=== PATIENT | female | born 1975 | race Caucasian/White ===

== ENCOUNTER 2021-02-20 02:49 | Outpatient (CLI) | payer MEDICAID, SELFPAY ==
[2021-02-20 13:35] LABS: Abs Immature Grans 0.02 10^3/uL (0.0-0.06); Absolute Basophil Count 0.02 10^3/uL (0.0-0.2); Absolute Eosinophil Count 0.17 10^3/uL (0.0-0.7); Absolute Lymphocyte Count 0.89 10^3/uL (1.2-3.4); Absolute Monocyte Count 0.41 10^3/uL (0.1-0.8); Absolute Neutrophil Count 5.88 10^3/uL (1.2-6.7); Basophils % 0.3; Eosinophils % 2.3; HCT 41.2 % (36.0-46.0); HGB 13.5 g/dL (11.2-15.7); Immature Grans % 0.3; MCH 30.7 pg (27.0-33.0); MCHC 32.8 % (32.0-36.0); MCV 93.6 fL (80-95); MPV 9.4 fL (8.0-11.0); Monocytes % 5.5; Neutrophils % 79.6; Nucleated RBC 0 %; Platelet Count 355 10^3/uL (130-400); RDW 13.6 % (11.7-14.6); RDW-SD 46.6 fL; WBC 7.39 10^3/uL (4.4-10.8)
[2021-02-20 13:45] LABS: ALT 21 U/L (14-59); AST 14 U/L (15-37); Albumin 3.3 g/dL (3.4-5.0); Alkaline Phosphatase 115 U/L (46-116); Anion Gap 8.5 mmol/L (3-11); BUN 7 mg/dL (7-18); Bilirubin, Total 0.3 mg/dL (0.2-1.0); CO2 26.5 mmol/L (21.0-32.0); CREATININE 0.6 mg/dL (0.55-1.02); Calcium 8.7 mg/dL (8.5-10.1); Chloride 105 mmol/L (98-107); Glucose 96 mg/dL (74-106); Potassium 3.6 mmol/L (3.5-5.1); Sodium 140 mmol/L (136-145); Total Protein 7.5 g/dL (6.4-8.2)
== END 2021-02-20 02:50 | disposition home or self-care (01) ==
LOC: LBO 02:49
PROVIDERS: Visit Provider Internal Medicine Hematology & Oncology
DX: C20 Malignant neoplasm of rectum (principal)
CPT/HCPCS: 36415; 80053; 85025

== ENCOUNTER 2021-02-27 02:52 | Outpatient (CLI) | payer MEDICAID, SELFPAY ==
[2021-02-27 14:33] LABS: Abs Immature Grans 0.02 10^3/uL (0.0-0.06); Absolute Basophil Count 0.02 10^3/uL (0.0-0.2); Absolute Eosinophil Count 0.31 10^3/uL (0.0-0.7); Absolute Lymphocyte Count 0.92 10^3/uL (1.2-3.4); Absolute Monocyte Count 0.45 10^3/uL (0.1-0.8); Absolute Neutrophil Count 3.76 10^3/uL (1.2-6.7); Basophils % 0.4; Eosinophils % 5.7; HCT 38.4 % (36.0-46.0); HGB 12.5 g/dL (11.2-15.7); Immature Grans % 0.4; Lymphocytes % 16.8; MCH 30.7 pg (27.0-33.0); MCHC 32.6 % (32.0-36.0); MCV 94.3 fL (80-95); MPV 9.1 fL (8.0-11.0); Monocytes % 8.2; Neutrophils % 68.5; Nucleated RBC 0 %; Platelet Count 276 10^3/uL (130-400); RBC 4.07 10^6/uL (3.93-5.22); RDW 14.3 % (11.7-14.6); RDW-SD 46.6 fL; WBC 5.48 10^3/uL (4.4-10.8)
[2021-02-27 14:44] LABS: ALT 18 U/L (14-59); AST 16 U/L (15-37); Albumin 3.1 g/dL (3.4-5.0); Alkaline Phosphatase 109 U/L (46-116); Anion Gap 9.8 mmol/L (3-11); BUN 7 mg/dL (7-18); Bilirubin, Total 0.1 mg/dL (0.2-1.0); CO2 25.2 mmol/L (21.0-32.0); CREATININE 0.7 mg/dL (0.55-1.02); Calcium 8.6 mg/dL (8.5-10.1); Chloride 106 mmol/L (98-107); Glucose 119 mg/dL (74-106); Potassium 3.6 mmol/L (3.5-5.1); Sodium 141 mmol/L (136-145); Total Protein 7.2 g/dL (6.4-8.2)
== END 2021-02-27 02:53 | disposition home or self-care (01) ==
LOC: LBO 02:54
PROVIDERS: Visit Provider Internal Medicine Hematology & Oncology
DX: C20 Malignant neoplasm of rectum (principal)
CPT/HCPCS: 36415; 80053; 85025

== ENCOUNTER 2021-03-06 03:49 | Outpatient (CLI) | payer MEDICAID, SELFPAY ==
[2021-03-06 15:53] LABS: Abs Immature Grans 0.02 10^3/uL (0.0-0.06); Absolute Basophil Count 0.01 10^3/uL (0.0-0.2); Absolute Eosinophil Count 0.55 10^3/uL (0.0-0.7); Absolute Lymphocyte Count 0.62 10^3/uL (1.2-3.4); Absolute Monocyte Count 0.55 10^3/uL (0.1-0.8); Absolute Neutrophil Count 3.57 10^3/uL (1.2-6.7); Basophils % 0.2; Eosinophils % 10.3; HGB 12.8 g/dL (11.2-15.7); Immature Grans % 0.4; Lymphocytes % 11.7; MCH 31.1 pg (27.0-33.0); MCHC 32.8 % (32.0-36.0); MCV 94.9 fL (80-95); MPV 9.2 fL (8.0-11.0); Monocytes % 10.3; Neutrophils % 67.1; Nucleated RBC 0 %; Platelet Count 227 10^3/uL (130-400); RBC 4.11 10^6/uL (3.93-5.22); RDW 15.2 % (11.7-14.6); RDW-SD 50.7 fL; WBC 5.32 10^3/uL (4.4-10.8)
[2021-03-06 16:51] LABS: ALT 18 U/L (14-59); AST 16 U/L (15-37); Albumin 3.3 g/dL (3.4-5.0); Alkaline Phosphatase 127 U/L (46-116); Anion Gap 10.8 mmol/L (3-11); BUN 4 mg/dL (7-18); Bilirubin, Total 0.3 mg/dL (0.2-1.0); CO2 27.2 mmol/L (21.0-32.0); CREATININE 0.7 mg/dL (0.55-1.02); Calcium 8.5 mg/dL (8.5-10.1); Chloride 105 mmol/L (98-107); Glucose 81 mg/dL (74-106); Potassium 3.2 mmol/L (3.5-5.1); Sodium 143 mmol/L (136-145); Total Protein 6.9 g/dL (6.4-8.2)
== END 2021-03-06 03:50 | disposition home or self-care (01) ==
LOC: LBO 03:49
PROVIDERS: Visit Provider Internal Medicine Hematology & Oncology
DX: C20 Malignant neoplasm of rectum (principal)
CPT/HCPCS: 36415; 80053; 85025

== ENCOUNTER 2021-03-13 14:06 | Outpatient (CLI) | payer MEDICAID, SELFPAY ==
--- OUTSIDE RECORDS SUMMARY | 2021-03-13 14:09 | XMS_ITS | Encounter Summary ---
:1975 Author Care Team Providers Name Role Phone Jacqueline Frank WOLFE Primary Care Provider [phone] Milton Camarillo General Surgeon [phone] Reason for Visit Painless rectal bleeding; Telehealth vis it - Patient at home Assessment and Plan Assessment Note 45-year-old woman with stage T3b re ctal cancer. We do not have the biopsy results on the subpectoral lymph nodes as of yet. It is felt that this is unlikely to represent metastatic rectal cancer bu t we await biopsy results to be sure. If biopsy results end up showing metastatic rectal cancer, it will jacquard loom card changer strategies. The patient will need to undergo neoadju vant chemoradiation therapy prior to surgical resection of her tumor. I had a long and detailed discussion wit h the family outlining the management strategies and NCCN guidelines pertaining to this stage of rectal cancer. We had an extensive talk about screening other family members. Siblings need their first colonoscopy at the age of 34. Parents should have colonoscopies every 5 years. The discussion was brought up about nanci ent's first cousins which are third- degree family members under usual circumstances and would otherwise have no increased risk. It so happens that a certain famil y of the patient's first cousins have pa rents who are both a second-degree family member from this woman. One parent is a maternal second-degree family member and the other parent is a paternal second-d egree family member. In regards to wheth er or not this increases risk, I do not know the answer and have informed the family that I will bring up this question to a genetic specialist and get back to them. Overall plan: I have sent referrals to radiation oncol pierre as well as medical oncology for neoadjuvant therapy. The patient will likely need to have a p ort placed for chemotherapy. Once we have a timeframe established for initiation of therapy, I am available to schedule a Mediport placement for her with only a few days advance notice. I will follow up with them, again by tel ephone, in a few days after the biopsy results from the lymph node are back. 30 minutes were spent together as a grou p on this phone call. This visit did not require the physical presence of the patient for examination. This visit was done to go over the staging results which guide the next steps in treatment management in regards to the patient's rectal cancer. This visit was performed by telephone an d was a group discussion involving myself and four family members/caregivers for this patient. As such, no physical exam was performed, but was also not needed. The risks (there is no risk) and benefit s (this enables involvement of all family members where as in-person in the office would only allow 1) to using this alternative platform for follow-up discussion s has been discussed with the family pre viously and they consent and are happy to proceed with this type of communication. My assessment and plans are based off of test results and imaging studies and do not depend on physical examination. It is possible, though unlikely that fur ther evaluation, including in-person examination, may be needed depending on the response to management or today's recommendation. 1. Painless rectal bleeding Discussion Note: None recorded.Patient educational handouts: No information available. Plan of Care Reminders Provider Appointments Cpe 40 06/24/2021 Jacqueline clarke, FAMILY WORKER 9:00AM Lab None ? ? recorded. Referral None ? ? recorded. Procedures None ? ? recorded. Surgeries None ? ? recorded. Imaging None ? ? recorded. Medications Name Start Date ? ? Colace 100 mg capsule ? Take 1 capsule twice a day by oral route. desoximetasone 0.05 % topical ointment ? APPLY A THIN LAYER TO THE AFFECTED AREA (S) BY TOPICAL ROUTE TWICE DAILY. RUB IN GENTLY AND COMPLETELY famotidine 20 mg tablet ? Take 1 tablet every day by oral route for 5 days. hydroxyzine HCl 25 mg tablet ? Take 1 tablet 4 times a day by oral route. levetiracetam 250 mg tablet ? TAKE 2 TABLET BY MOUTH TWICE DAILY lorazepam 0.5 mg tablet ? TAKE 1 TABLET BY MOUTH EVERY 4 TO 6 HOURS NEEDED medroxyprogesterone 150 mg/mL intramuscular syringe ? INJECT 1ML INTRAMUSCULARLY EVERY 3 MONTHS potassium chloride ER 10 mEq capsule,extended release ? Take 1 capsule twice a day by oral route. Tegretol XR 200 mg tablet,extended release ? Take 3 tablets twice a day by oral route for 90 days. Medications Administered None recorded. Vitals Height 4 ft 11.2 in Results Lab Results None recorded. Allergies Code Code System Name Reaction Severity Onset RxNorm Lamictal ? ? ? 8134 RxNorm Phenobarbital ? ? ? 436202 RxNorm Trileptal ? ? ? Notes: 11/21/20 verbal review Reviewed with Ericka wu 06/20/20 Problems Name Status Onset Date Source ? Painless Rectal Bleeding Active 03/28/2020 ? Onychomycosis Active ? History Nevus of Eyelid Active ? ? Hyperlipidemia Active ? History Intellectual Functioning Disability Active ? ? Epilepsy Active ? ? Pericardial Effusion Active ? History Lichen Simplex Chronicus Active ? History Acanthosis Nigricans Active ? History Agenesis of Corpus Callosum Active ? ? Congenital Toxoplasmosis Active ? History Procedures Date Name Performed by ? 12/19/2020 Colonoscopy Information not avai lable Notes: rectal cancer 12/19/2020 Endoscopy Information not avai lable Notes: duodenitis, gastritis, polyps, hiatal hernia. 12/26/2020 MRI, Pelvis, W/ Contrast [facility] ([facility] [place] [facility]) [address] [place] [address] (Work Place) 12/27/2020 CT, Chest + Abdomen + Pelvis, / [facility] (Internal) Contrast [address] [place], [place] [id number] (Work Place) 01/02/2021 PET-CT, Skull Base to Mid-thigh Scan [facility] (Internal) [address] [place] [address] (Work Place) Notes: None Vaccine List Vaccine Type COVID-19, mRNA, LNP-S, PF, 100 mcg/0.5 m L dose 12/03/2020?100 mcg Hep B, adult 01/13/2001 02/17/2001 08/23/2001 Td (adult) preservative free 06/29/2016?0.5 mL Td (adult), adsorbed 06/13/1998 Tdap 05/20/2006 Social History Tobacco Smoking Status Never Smoker Most Recent Tobacco Use Screening 12/15/2019 Family History Relation Problem Onset Age of Age Notes Paternal Grandfather Diabetes mellitus (No N/A (N o Notes) Information) Paternal Grandmother Arthritis (No N/A (No Not es) Information) Father Hypertensive disorder (No N/A (No No mendel) Information) Maternal Grandfather Diabetes mellitus (No N/A (N o Notes) Information) Maternal Grandfather Hypertensive disorder (No N/A (No Notes) Information) Maternal Grandfather Coronary arteriosclerosis (No N/A (No Notes) Information) Maternal Grandfather Malignant tumor of (No N/A ( No Notes) prostate Information) Maternal Grandfather Malignant melanoma (No N/A ( No Notes) Information) Maternal Grandfather Renal failure syndrome (No N/A (No Notes) Information) Functional Status Unknown. Past Encounters 01/10/2021 Painless Rectal Bleeding Milton Camarillo MD: [place] [address], Ph. 12/26/2020 Milton Camarillo MD: [address] [place] [address], Ph. 12/10/2020 Milton Camarillo MD: [place] [address], Ph. History of Present Illness Note: <p>The patient's caregivers and parents(4 people) are {{home* in the office}}. The provider is {{home in the office*}}.

The patient's caregivers and family have been positively identified and have consented to a group, speaker-telephone discussion about results pertainingto her rectal cancer staging workup.

The time spent in counseling and coordination of care was 30 minutes on the telephone.</p><p>
</p><p>
&l t;/p><p>
</p><p>
</p><p><b r></p><p>Reason for this discussion as the patient has had her staging MRI. She also had one of the subpectoral lymph nodes biopsied percutaneously.
</p><p>
</p><p>Stage T3b rectal cancer.
</p>Review of Systems: ROS as noted in the HPI Review of Systems None recorded. Physical Exam ? Notes: <p>Telephone visit
</p>
--- OUTSIDE RECORDS SUMMARY | 2021-03-13 14:09 | XMS_ITS ---
:1975 Author Care Team Providers Name Role Phone JACQUELINE MICHAELA AIDEN Primary Care Provider [phone] STEPHANIE AYALA General Surgeon [phone] Allergies Code Code System Name Reaction Severity Status Onset RxNorm Lamictal ? ? Active ? 8134 RxNorm Phenobarbital ? ? Active ? 734382 RxNorm Trileptal ? ? Active ? Notes: 11/21/20 verbal review Reviewed with Ericka wu 06/20/20 Medications Name Status Start Date Stop Date ? ? acetaminophen 300 mg-codeine 30 mg tablet Completed 200811/28/2008 1 (one) Tablet: every four to six hours as needed amoxicillin 500 mg tablet Completed 09/27/20152015 1 (one) Tablet: twice a day Bactrim DS 800 mg-160 mg tablet Completed 09/18/2016 09/21/2016 1 (one) Tablet: two times daily Cipro 500 mg tablet Completed 04/08/2005 04/15/2005 1 Tablet: BID Colace 100 mg capsule Active ? Not availa ble Take 1 capsule twice a day by oral route. desoximetasone 0.05 % topical ointment Active ? Not available APPLY A THIN LAYER TO THE AFFECTED AREA (S) BY TOPICAL ROUTE TWICE DAILY. RUB IN GENTLY AND COMPLETELY Diflucan 150 mg tablet Completed 06/03/2005 6 1 (one) Tablet: Daily Enablex 7.5 mg tablet,extended release Completed 7 01/05/2008 1 (one) Tablet ER 24HR: Daily famotidine 20 mg tablet Active ? Not avai lable Take 1 tablet every day by oral route for 5 days. fluticasone propionate 50 mcg/actuation nasal spray,suspension A ctive ? Not available USE 1 SPRAY(S) IN EACH NOSTRIL TWICE DAILY Gold Arizmendi Medicated Completed ? 06/20/2020 use as needed hydroxyzine HCl 25 mg tablet Active ? Not available Take 1 tablet 4 times a day by oral route. ketoconazole 2 % topical cream Completed ? 0 12/15/2019 once daily as needed levetiracetam 250 mg tablet Active ? Not available TAKE 2 TABLET BY MOUTH TWICE DAILY lorazepam 0.5 mg tablet Active ? Not avai lable TAKE 1 TABLET BY MOUTH EVERY 4 TO 6 HOURS NEEDED lorazepam 1 mg tablet Completed 03/26/2020 03/26/2020 Macrobid 100 mg capsule Completed ? 11/22/19 21 Take 1 capsule every 12 hours by oral route for 5 days. medroxyprogesterone 150 mg/mL Completed ? intramuscular suspension medroxyprogesterone 150 mg/mL intramuscular syringe Active ? Not available INJECT 1ML INTRAMUSCULARLY EVERY 3 MONTHS Mentax 1 % topical cream Completed 02/19/2012 012 1 (one) Application(s): twice daily for three weeks nto affecte d area potassium chloride ER 10 mEq capsule,extended release Active ? Not available Take 1 capsule twice a day by oral route. Tegretol 200 mg tablet Completed 05/29/2008 8 3 (three) Tablet: every morning and 4 tabs every evening Tegretol XR 100 mg Completed 10/26/2014 10/26/2014 tablet,extended release Tegretol XR 200 mg tablet,extended release Active ? Not available Take 3 tablets twice a day by oral route for 90 days. triamcinolone acetonide 0.1 % lotion Completed ? 12/15/2019 APPLY A THIN LAYER TO THE AFFECTED AREA(S) BY TOPICAL ROUTE 2 T IMES PER DAY Zithromax Z-Wang 250 mg tablet Completed 12/07/2008 1 (one) Tablet: Daily Problems Name Status Onset Date Source ? Right Sided Abdominal Pain Unknown 12/15/2019 ? Painless Rectal Bleeding Active 03/28/2020 ? Onychomycosis Active ? History Tinea Pedis Unknown ? History Nevus of Eyelid Active ? ? Hyperlipidemia Active ? History Intellectual Functioning Disability Active ? ? Localization-related Symptomatic Unknown ? History Epilepsy Epilepsy Active ? ? Pericardial Effusion Active ? History Lichen Simplex Chronicus Active ? History Acanthosis Nigricans Active ? History Agenesis of Corpus Callosum Active ? ? Congenital Toxoplasmosis Active ? History Abnormal Weight Gain Unknown ? History Abnormal Weight Loss Unknown ? History Abdominal Pain Unknown ? History Procedures Date Name Performed by ? 12/19/2020 Colonoscopy Information not avai lable Notes: rectal cancer 12/19/2020 Endoscopy Information not avai lable Notes: duodenitis, gastritis, polyps, hiatal hernia. 03/28/2020 XR, Abdomen [facility] al Radiology (Internal) [address] [place] [id number] (Work Place) 03/28/2020 US, Abdomen, Limited [facility] (Internal) [address] [place] [id number] (Work Place) 03/28/2020 XR, Abdomen, 1 View [facility] Radiology (Internal) [address] [place] [id number] (Work Place) 12/26/2020 MRI, Pelvis, W/ Contrast [facility] [address] [place] [address] (Work Place) 12/27/2020 CT, Chest + Abdomen + Pelvis, W/ [facility] Radiology (Internal) Contrast [address] [place] [id number] (Work Place) 01/02/2021 PET-CT, Skull Base to Mid-thigh Scan [facility] Radiology (Internal) [address] [place] [id number] (Work Place) Notes: None Results Lab Results Date Name Specimen Result Interpretation Description Value Range Status Address ? 12/31/2020 CBC W/ BLD High Wbc 11.0 10*3/uL 5.0-10.0 Final [place] Auto Diff 10*3/uL [facility] [place] [place] L ab (Internal) : [address] t ? ? BLD ? Rbc 4.82 10*6/uL 4.10-5.30 Final N orth 10*6/uL [facility] L ab (Internal) : [address] t ? ? BLD ? Hgb 14.8 g/dL 12.0-16.0 Final Nort h g/dL [facility] L ab (Internal) : [address] t ? ? BLD ? Hct 44.6 % 37.0-47.0 Final [facility] ([facility] : [address] t ? ? BLD ? Mcv 92.5 fL 80.0-96.0 Final [facility] L [facility] (Internal) : [address] t ? ? BLD ? Mch 30.7 pg 26.0-32.0 Final [facility] pg [facility] L ab (Internal) : [address] t ? ? BLD ? Mchc 33.2 g/dL 31.0-35.0 Final Nort h g/dL [facility] L [facility] (Internal) : [address] t ? ? BLD ? Rdw 13.6 % 11.5-14.5 Final [facility] L ab (Internal) : [address] t ? ? BLD ? Plt 232 10*3/uL 130-450 Final Nort h 10*3/uL [facility] L ab (Internal) : [address] t 12/31/2020 CMP, Serum S High g/r 149 mg/dL 74-106 Final North or Plasma mg/dL [facility] L ab (Internal) : [address] t ? ? S ? Bun 14 mg/dL 7-17 Final [facility] mg/dL [facility] L ab (Internal) : [address] t ? ? S ? Crea 0.90 mg/dL 0.52-1.04 Final Nor th mg/dL [facility] L ab (Internal) : [address] t ? ? S Low Ca 8.1 mg/dL 8.4-10.2 Final [facility] mg/dL [facility] L ab (Internal) : [address] t ? ? S ? Na 140 mmol/L 137-145 Final North mmol/L [facility] L ab (Internal) : [address] t ? ? S ? K 3.9 mmol/L 3.5-5.1 Final [facility] mmol/L [facility] L ab (Internal) : [address] t ? ? S ? Cl 101 mmol/L 98-107 Final [facility] mmol/L [facility] L ab (Internal) : [address] t ? ? S ? Tco2 26.0 mmol/L 22.0-30.0 Final No rth mmol/L [facility] L ab (Internal) : [address] t ? ? S Low Tp 6.0 g/dL 6.3-8.2 Final [place] g/dL [facility] L ab (Internal) : [address] t ? ? S Low Alb 3.2 g/dL 3.5-5.0 Final [place] g/dL [facility] L ab (Internal) : [address] t ? ? S ? Tbil 0.5 mg/dL 0.2-1.3 Final [place] mg/dL [facility] L ab (Internal) : [address] t ? ? S ? Alp 69 U/L 50-136 Final [place] U/L [facility] L ab (Internal) : [address] t ? ? S ? Alt 22 U/L 9-52 U/L Final [place] (Sgpt) [facility] L ab (Internal) : [address] t ? ? S ? Ast 27 U/L 14-36 U/L Final [place] (Sgot) [facility] L ab (Internal) : [address] 12/31/2020 Neutrophil BLD ? Anc-manu 10.02 10*3/uL ? Final [place] Count, [facility] Lab (Anc), (Internal) : Blood [address] 12/31/2020 Differenti BLD High Polys 88 % 40-75 % Final N orth al, Country Manual, Hospital Lab Blood (Internal) : [address] ? ? BLD ? Bands 3 % 0-5 % Final [facility] L ab (Internal) : [address] t ? ? BLD Low Lymphs 0 % 20-50 % Final [facility] L ab (Internal) : [address] ? ? BLD ? Lipscomb 3 % 2-10 % Final [facility] L ab (Internal) : [address] t ? ? BLD ? Eos 3 % 0-6 % Final [facility] L ab (Internal) : [address] ? ? BLD High Baso 3 % 0-1 % Final [facility] L ab (Internal) : [address] t ? ? BLD ? Atyp 0 % ? Final [place] Lymph [facility] ab (Internal) : [address] ? ? BLD ? Plts, adequate adequate Final [place] Est. [facility] ab (Internal) : [address] t ? ? BLD ? RBC normal normal Final [place] Morpholog [facility] Hospital ab (Internal) : [address] 12/31/2020 Nlr-manual BLD ? Nlr - <0.01 0.00-3.20 Final [facility] ab (Internal) : [address] 12/31/2020 ESR BLD High Esr 79 mm/h 0-30 mm/h Final No rth (Erythrocy Countr y [facility] Sedimentat (Inter nal): ion Rate), [address] 12/31/2020 Urinalysis UR ? UA-color dark yellow pale F inal [place] , yellow [facility] Dipstick, Hospita l Lab Reflex (Internal) : Micro [address] t ? ? UR ABNORMAL UA-appea cloudy clear Final [facility] ab (Internal) : [address] t ? ? UR ? UA-spec >=1.030 1.003-1.0 Final Nort h Grav 35 [facility] ab (Internal) : [address] t ? ? UR ? UA-pH 6.5 [pH] 4.6-8.0 Final [place] [pH] [facility] ab (Internal) : [address] t ? ? UR ABNORMAL UA-leuk trace negative Final Nort h [facility] ab (Internal) : [address] t ? ? UR ? UA-nitri negative negative Final [facility] ab (Internal) : [address] t ? ? UR ABNORMAL UA-prot 2+ negative Final Nort h [facility] ab (Internal) : [address] t ? ? UR ? UA-gluc negative negative Final Nort h [facility] ab (Internal) : [address] t ? ? UR ABNORMAL UA-keton trace negative Final [facility] (Internal) : [address] t ? ? UR ABNORMAL UA-urobi positive normal Final [facility] L ab (Internal) : [address] ? ? UR ABNORMAL UA-bili small negative Final Nort h [facility] ab (Internal) : [address] ? ? UR ? UA-blood negative negative Final [facility] ab (Internal) : [address] 12/31/2020 Urinalysis UR ABNORMAL UA-WBC 5-10 [hpf] 0-3 [hpf] Final [facility] Hospit al Lab c (Internal) : [address] ? ? UR ? UA-RBC 0-2 [hpf] 0-2 [hpf] Final [facility] ab (Internal) : [address] ? ? UR ABNORMAL UA-bacte few [hpf] none seen Final [place] jacki [hpf] [facility] ab (Internal) : [address] ? ? UR ABNORMAL UA-epith many [hpf] none seen Final [place] elial [hpf] [facility] ab (Internal) : [address] ? ? UR ABNORMAL UA-mucus many [hpf] none seen Final [place] [hpf] [facility] ab (Internal) : [address] 12/31/2020 Culture UR ? Final microbiology ? Final [place] ([place] results [facility] Lab Urine (Internal) : [address] 12/19/2020 CBC W/ BLD ? Wbc 9.1 10*3/uL 5.0-10.0 Final [place] Auto Diff 10*3/uL [facility] [place] [place] L ab (Internal) : [address] ? ? BLD ? Rbc 4.12 10*6/uL 4.10-5.30 Final N orth 10*6/uL [facility] L ab (Internal) : [address] ? ? BLD ? Hgb 12.8 g/dL 12.0-16.0 [facility] L ab (Internal) : [address] ? ? BLD ? Hct 39.3 % 37.0-47.0 Final [facility] (Internal) : [address] t ? ? BLD ? Mcv 95.4 fL 80.0-96.0 Final [facility] f[facility] L ab (Internal) : [address] t ? ? BLD ? Mch 31.1 pg 26.0-32.0 Final [facility] pg [facility] L ab (Internal) : [address] t ? ? BLD ? Mchc 32.6 g/dL 31.0-35.0 Final Nort h g/dL [facility] L ab (Internal) : [address] t ? ? BLD ? Rdw 13.3 % 11.5-14.5 Final [facility] L ab (Internal) : [address] t ? ? BLD ? Plt 300 10*3/uL 130-450 Final Nort h 10*3/uL [facility] L ab (Internal) : [address] t 12/19/2020 CMP, Serum S High g/r 132 mg/dL 74-106 Final North or Plasma mg/dL [facility] L ab (Internal) : [address] t ? ? S Low Bun 3 mg/dL 7-17 Final [facility] mg/dL [facility] L ab (Internal) : [address] ? ? S Low Crea 0.50 mg/dL 0.52-1.04 Final Nor th mg/dL [facility] L ab (Internal) : [address] t ? ? S ? Ca 8.7 mg/dL 8.4-10.2 Final [facility] mg/dL [facility] L ab (Internal) : [address] t ? ? S ? Na 141 mmol/L 137-145 Final [facility] mmol/L [facility] L ab (Internal) : [address] t ? ? S ? K 3.5 mmol/L 3.5-5.1 Final [facility] mmol/L [facility] L ab (Internal) : [address] t ? ? S ? Cl 104 mmol/L 98-107 Final [facility] mmol/L [facility] L ab (Internal) : [address] t ? ? S ? Tco2 24.0 mmol/L 22.0-30.0 Final No rth mmol/L [facility] L ab (Internal) : [address] t ? ? S ? Tp 6.5 g/dL 6.3-8.2 Final [place] g/dL [facility] L ab (Internal) : [address] t ? ? S ? Alb 3.6 g/dL 3.5-5.0 Final [place] g/dL [facility] L ab (Internal) : [address] t ? ? S ? Tbil 0.3 mg/dL 0.2-1.3 Final [place] mg/dL [facility] L ab (Internal) : [address] ? ? S ? Alp 83 U/L 50-136 Final [place] U/L [facility] L ab (Internal) : [address] ? ? S ? Alt 22 U/L 9-52 U/L Final [place] (Sgpt) [facility] L ab (Internal) : [address] t ? ? S ? Ast 22 U/L 14-36 U/L Final [place] (Sgot) [facility] L ab (Internal) : [address] t 12/19/2020 Differenti BLD High Polys 84 % 40-75 % Final N orth al, [facility], [facility] Lab Blood (Internal) : [address] ? ? BLD ? Bands 0 % 0-5 % Final [facility] L ab (Internal) : [address] ? ? BLD Low Lymphs 10 % 20-50 % Final [facility] L ab (Internal) : [address] ? ? BLD ? Lipscomb 6 % 2-10 % Final [facility] L ab (Internal) : [address] ? ? BLD ? Eos 0 % 0-6 % Final [facility] L ab (Internal) : [address] ? ? BLD ? Baso 0 % 0-1 % Final [facility] L ab (Internal) : [address] ? ? BLD ? Atyp 0 % ? Final [place] Lymph [facility] L ab (Internal) : [address] ? ? BLD ? Plts, adequate adequate Final [facility] L ab (Internal) : [address] ? ? BLD ? RBC normal normal Final [place] Morpholog [facility] (Internal) : [address] 12/19/2020 Neutrophil BLD ? Anc-manu 7.61 10*3/uL ? Final [place] Count, al [facility] Lab (Anc), (Internal) : Blood [address] 12/19/2020 Nlr-manual BLD High Nlr - 8.40 0.00-3.20 Final [place] Manual [facility] Hospital L ab (Internal) : [address] 12/19/2020 Carcinoemb S ? [place] 7.1 NG/mL see note F inal [place] ryonic Ag, mbryonic NG/mL Coun try Quant, Antigen Hospital Lab Serum or (Interna l): Plasma [address] 12/19/2020 Pathology TISS ? Report (see below) ? Ariane l [facility] L ab (Internal) : [address] 09/01/2020 CBC W/ BLD ? Wbc 8.5 10*3/uL 5.0-10.0 Final [place] Auto Diff 10*3/uL [facility] Hospital L ab (Internal) : [address] ? ? BLD ? Rbc 4.81 10*6/uL 4.10-5.30 Final N orth 10*6/uL [facility] L ab (Internal) : [address] ? ? BLD ? Hgb 14.8 g/dL 12.0-16.0 Final Nort h g/dL [facility] L ab (Internal) : [address] ? ? BLD ? Hct 45.1 % 37.0-47.0 Final [place] % [facility] Hospital L ab (Internal) : [address] ? ? BLD ? Mcv 93.8 fL 80.0-96.0 Final [facility] L ab (Internal) : [address] ? ? BLD ? Mch 30.8 pg 26.0-32.0 Final [place] pg [facility] L ab (Internal) : [address] ? ? BLD ? Mchc 32.8 g/dL 31.0-35.0 Final Nort [facility] g/dL [facility] (Internal) : [address] t ? ? BLD ? Rdw 12.9 % 11.5-14.5 Final [facility] L ab (Internal) : [address] ? ? BLD ? Plt 376 10*3/uL 130-450 Final Nort h 10*3/uL [facility] L ab (Internal) : [address] 09/01/2020 Lipase, S ? Lip 139 U/L 23-300 Final Nort h Serum or U/L [facility] L ab (Internal) : [address] 09/01/2020 CMP, Serum S ? g/r 103 mg/dL 74-106 Final [facility] or Plasma mg/dL [facility] L ab (Internal) : [address] t ? ? S ? Bun 7 mg/dL 7-17 Final [facility] mg/dL [facility] L [facility] (Internal) : [address] ? ? S ? Crea 0.60 mg/dL 0.52-1.04 Final Nor th mg/dL [facility] L ab (Internal) : [address] t ? ? S ? Ca 8.7 mg/dL 8.4-10.2 Final [facility] mg/dL [facility] L ab (Internal) : [address] t ? ? S ? Na 142 mmol/L 137-145 Final [facility] mmol/L [facility] (Internal) : [address] ? ? S ? K 4.0 mmol/L 3.5-5.1 Final [facility] mmol/L [facility] L ab (Internal) : [address] t ? ? S ? Cl 107 mmol/L 98-107 Final [facility] mmol/L [facility] L ab (Internal) : [address] ? ? S ? Tco2 25.0 mmol/L 22.0-30.0 Final No rth mmol/L [facility] L ab (Internal) : [address] ? ? S ? Tp 8.0 g/dL 6.3-8.2 Final [facility] g/dL [facility] L ab (Internal) : [address] t ? ? S ? Alb 4.4 g/dL 3.5-5.0 Final [place] g/dL [facility] L ab (Internal) : [address] ? ? S ? Tbil 0.3 mg/dL 0.2-1.3 Final [place] mg/dL [facility] L ab (Internal) : [address] t ? ? S ? Alp 95 U/L 50-136 Final [place] U/L [facility] L ab (Internal) : [address] ? ? S ? Alt 18 U/L 9-52 U/L Final [place] (Sgpt) [facility] L ab (Internal) : [address] ? ? S ? Ast 35 U/L 14-36 U/L Final [place] (Sgot) [facility] L ab (Internal) : [address] 09/01/2020 Urinalysis UR ? UA-color yellow pale Final [place] , yellow [facility] Dipstick, Hospita l Lab Reflex (Internal) : Micro [address] t ? ? UR ABNORMAL UA-appea hazy clear Final North r [facility] ab (Internal) : [address] ? ? UR ? UA-spec 1.020 1.003-1.0 Final [place] Grav 35 [facility] L ab (Internal) : [address] t ? ? UR ? UA-pH 6.5 [pH] 4.6-8.0 Final [place] [pH] [facility] L ab (Internal) : [address] ? ? UR ABNORMAL UA-leuk trace negative Final Nort h Est [facility] L ab (Internal) : [address] ? ? UR ? UA-nitri negative negative Final Nor th te [facility] L ab (Internal) : [address] ? ? UR ABNORMAL UA-prot trace negative Final Nort h [facility] ab (Internal) : [address] t ? ? UR ? UA-gluc negative negative Final Nort h [facility] ab (Internal) : [address] t ? ? UR ? UA-keton negative negative Final Nor th e [facility] L ab (Internal) : [address] t ? ? UR ? UA-urobi normal normal Final [facility] L ab (Internal) : [address] t ? ? UR ? UA-bili negative negative Final [facility] L ab (Internal) : [address] t ? ? UR ? UA-blood negative negative [facility] (Internal) : [address] 09/01/2020 Urinalysis UR ABNORMAL UA-WBC 5-10 [hpf] 0-3 [hpf] Final [facility] Microscop[facility] Hospit al Lab c (Internal) : [address] ? ? UR ? UA-RBC 0-2 [hpf] 0-2 [hpf] Final [facility] (Internal) : [address] ? ? UR ABNORMAL UA-bacte moderate none seen Final [place] jacki [hpf] [hpf] [facility] ab (Internal) : [address] ? ? UR ABNORMAL UA-epith moderate none seen Final [place] elial [hpf] [hpf] [facility] ab (Internal) : [address] ? ? UR ABNORMAL UA-mucus moderate none seen Final [place] [hpf] [hpf] [facility] ab (Internal) : [address] 09/01/2020 Culture UR ? Final microbiology ? Final [place] ([place] results Country Count), [facility] Lab Urine (Internal) : [address] 09/01/2020 Differenti BLD ? Polys 71 % 40-75 % Final N orth al, [facility] Manual, Hospital Lab Blood (Internal) : [address] ? ? BLD ? Bands 0 % 0-5 % Final [facility] L ab (Internal) : [address] ? ? BLD Low Lymphs 18 % 20-50 % Final [facility] L ab (Internal) : [address] ? ? BLD ? Lipscomb 9 % 2-10 % Final [facility] ab (Internal) : [address] ? ? BLD ? Eos 1 % 0-6 % Final [facility] ab (Internal) : [address] ? ? BLD ? Baso 1 % 0-1 % Final [facility] L ab (Internal) : [address] ? ? BLD ? Atyp 0 % ? Final [facility] Hospital L ab (Internal) : [address] ? ? BLD ? Plts, adequate adequate Final [place] Est. [facility] Hospital L ab (Internal) : [address] ? ? BLD ? RBC normal normal Final [place] Morpholog [facility] L ab (Internal) : [address] 09/01/2020 Neutrophil BLD ? Anc-manu 6.01 10*3/uL ? Final [place] Count, al [facility] Absolute Hospital Lab (Anc), (Internal) : Blood [address] 09/01/2020 Nlr-manual BLD High Nlr - 3.94 0.00-3.20 Final [facility] L ab (Internal) : [address] t 03/29/2020 CBC W/ BLD ? Wbc 9.0 10*3/uL 5.0-10.0 Final [place] Auto Diff 10*3/uL [facility] Hospital L ab (Internal) : [address] ? ? BLD ? Rbc 4.65 10*6/uL 4.10-5.30 Final N orth 10*6/uL [facility] Hospital L ab (Internal) : [address] ? ? BLD ? Hgb 14.1 g/dL 12.0-16.0 Final Nort h g/dL [facility] Hospital L ab (Internal) : [address] ? ? BLD ? Hct 42.9 % 37.0-47.0 Final [facility] Hospital L ab (Internal) : [address] ? ? BLD ? Mcv 92.3 fL 80.0-96.[address] [facility] Hospital L ab (Internal) : [address] ? ? BLD ? Mch 30.3 pg 26.0-32.0 Final [facility] Hospital L ab (Internal) : [address] ? ? BLD ? Mchc 32.9 g/dL 31.0-35.0 Final Nort h g/dL [facility] Hospital L ab (Internal) : [address] ? ? BLD ? Rdw 13.3 % 11.5-14.5 Final [facility] L ab (Internal) : [address] ? ? BLD ? Plt 345 10*3/uL 130-450 Final Nort h 10*3/uL [facility] Hospital L ab (Internal) : [address] ? ? BLD ? Anc 6.75 10*3/uL ? Final Nort h [facility] L ab (Internal) : [address] t ? ? BLD High Nlr 5.40 0.00-3.20 Final [facility] L ab (Internal) : [address] ? ? BLD ? Neutro 74.8 % 40.0-75.0 Final [facility] L ab (Internal) : [address] ? ? BLD Low Lymph 13.9 % 20.0-50.0 Final [facility] Hospital L ab (Internal) : [address] [place] t ? ? BLD ? Lipscomb 8.8 % 2.0-10.0 Final [facility] L ab (Internal) : [address] [place] t ? ? BLD ? Eos 1.9 % 1.0-6.0 % Final [facility] L ab (Internal) : [address] [place] t ? ? BLD ? Baso 0.3 % 0.0-1.0 % Final [facility] L ab (Internal) : [address], [place] ? ? BLD ? Ig 0.3 % 0.0-0.9 % Final [facility] L ab (Internal) : [address], [place] t 03/29/2020 HbA1C BLD ? Ha1C 5.7 % 4.0-6.0 % Final Nor th (Hemoglobi Countr y n a1C), Hospital Lab Blood (Internal) : [address] t 03/29/2020 Amylase, S ? Ericka 50 U/L 30-110 Final Nort h Serum or U/L [facility] Hospital L ab (Internal) : [address] 03/29/2020 Lipase, S ? Lip 177 U/L 23-300 Final Nort h Serum or U/L [facility] L [facility] (Internal) : [address] t 03/29/2020 CMP, Serum S High g/r 119 mg/dL 74-106 Final [facility] or [facility] mg/dL [facility] L [facility] (Internal) : [address] t ? ? S ? Bun 8 mg/dL 7-17 Final [facility] mg/dL [facility] L [facility] (Internal) : [address] t ? ? S ? Crea 0.70 mg/dL 0.52-1.04 Final Nor [facility] mg/dL [facility] L ab (Internal) : [address] t ? ? S ? Ca 9.1 mg/dL 8.4-10.2 Final [facility] mg/dL [facility] L [facility] (Internal) : [address] t ? ? S ? Na 140 mmol/L 137-145 Final [facility] mmol/L [facility] L [facility] (Internal) : [address] t ? ? S ? K 3.8 mmol/L 3.5-5.1 Final [facility] mmol/L [facility] L [facility] (Internal) : [address] t ? ? S ? Cl 107 mmol/L 98-107 Final [facility] mmol/L [facility] L [facility] (Internal) : [address] t ? ? S ? Tco2 23.0 mmol/L 22.0-30.0 Final No rth mmol/L [facility] L ab (Internal) : [address] t ? ? S ? Tp 7.5 g/dL 6.3-8.2 Final [facility] g/dL [facility] L [facility] (Internal) : [address] t ? ? S ? Alb 4.1 g/dL 3.5-5.0 Final [facility] g/dL [facility] L [facility] (Internal) : [address] t ? ? S ? Tbil 0.5 mg/dL 0.2-1.3 Final [facility] mg/dL [facility] L ab (Internal) : [address] t ? ? S ? Alp 100 U/L 50-136 Final [facility] U/L [facility] L [facility] (Internal) : [address] t ? ? S ? Alt 19 U/L 9-52 U/L Final [place] (Sgpt) [facility] Hospital L ab (Internal) : [address] t ? ? S ? Ast 25 U/L 14-36 U/L Final [place] (Sgot) [facility] Hospital L ab (Internal) : [address] t 03/26/2020 CBC W/ BLD ? Wbc 7.7 10*3/uL 5.0-10.0 Final [place] Auto Diff 10*3/uL [facility] L ab (Internal) : [address] t ? ? BLD ? Rbc 4.48 10*6/uL 4.10-5.30 Final N orth 10*6/uL [facility] Hospital L ab (Internal) : [address] t ? ? BLD ? Hgb 13.7 g/dL 12.0-16.0 Final Nort h g/dL [facility] Hospital L ab (Internal) : [address] t ? ? BLD ? Hct 42.1 % 37.0-47.0 Final [facility] Hospital L ab (Internal) : [address] t ? ? BLD ? Mcv 94.0 fL 80.0-96.[address] [facility] Hospital L ab (Internal) : [address] t ? ? BLD ? Mch 30.6 pg 26.0-32.0 Final [facility] Hospital L ab (Internal) : [address] t ? ? BLD ? Mchc 32.5 g/dL 31.0-35.0 Final Nort h g/dL [facility] Hospital L ab (Internal) : [address] t ? ? BLD ? Rdw 13.4 % 11.5-14.5 Final [facility] Hospital L ab (Internal) : [address] t ? ? BLD ? Plt 331 10*3/uL 130-450 Final Nort h 10*3/uL [facility] Hospital L ab (Internal) : [address] t ? ? BLD ? Anc 5.38 10*3/uL ? Final Nort h [facility] Hospital L ab (Internal) : [address] t ? ? BLD High Nlr 4.27 0.00-3.20 Final [facility] Hospital L ab (Internal) : [address], [place] ? ? BLD ? Neutro 69.5 % 40.0-75.0 Final [facility] Hospital L ab (Internal) : [address] [place] ? ? BLD Low Lymph 16.3 % 20.0-50.0 Final [facility] L ab (Internal) : [address] ? ? BLD High Lipscomb 12.0 % 2.0-10.0 Final [facility] Hospital L ab (Internal) : [address], [place] ? ? BLD ? Eos 1.6 % 1.0-6.0 % Final [facility] L ab (Internal) : [address], [place] ? ? BLD ? Baso 0.1 % 0.0-1.0 % Final [facility] L ab (Internal) : [address] [place] ? ? BLD ? Ig 0.5 % 0.0-0.9 % Final [facility] L ab (Internal) : [address] t 03/26/2020 Urinalysis UR ? UA-color yellow pale Final [place] , yellow [facility] Dipstick, Hospita l Lab Reflex (Internal) : Micro [address] [place] ? ? UR ? UA-appea clear clear Final [facility] L ab (Internal) : [address] [place] [address] ? ? UR ? UA-spec 1.025 1.003-1.0 Final [place] Grav 35 [facility] Hospital L ab (Internal) : [address] t ? ? UR ? UA-pH 6.5 [pH] 4.6-8.0 Final [place] [pH] [facility] Hospital L ab (Internal) : [address] ? ? UR ? UA-leuk negative negative Final Nort h [facility] Hospital L ab (Internal) : [address] ? ? UR ? UA-nitri negative negative Final Nor th te [facility] Hospital L ab (Internal) : [address] ? ? UR ? UA-prot negative negative Final Nort h [facility] Hospital L ab (Internal) : [address] ? ? UR ? UA-gluc negative negative Final Nort h [facility] Hospital L ab (Internal) : [address] t ? ? UR ? UA-keton negative negative Final Nor e [facility] Hospital L ab (Internal) : [address] t ? ? UR ? UA-urobi normal normal Final [facility] Hospital L ab (Internal) : [address] t ? ? UR ? UA-bili negative negative Final Nort h [facility] L ab (Internal) : [address] t ? ? UR ? UA-blood negative negative Final [facility] L [facility] ([facility]) : [address] 03/26/2020 CRP, High S High Rcrp 1.79 mg/dL 0.10-0.30 Fin al [facility] Sensitivit mg/dL Countr y y, Serum Hospital Lab or Plasma (Air Cargo Agent al): [address] 03/26/2020 CMP, Serum S High g/r 143 mg/dL 74-106 Final North or Plasma mg/dL [facility] L ab (Internal) : [address] t ? ? S ? Bun 9 mg/dL 7-17 Final [place] mg/dL [facility] L ab (Internal) : [address] t ? ? S ? Crea 0.60 mg/dL 0.52-1.04 Final [facility] mg/dL [facility] L ab (Internal) : [address] t ? ? S ? Ca 9.2 mg/dL 8.4-10.2 Final [place] mg/dL [facility] Hospital L ab (Internal) : [address] t ? ? S ? Na 141 mmol/L 137-145 Final North mmol/L [facility] L ab (Internal) : [address] t ? ? S ? K 3.8 mmol/L 3.5-5.1 Final [facility] mmol/L [facility] Hospital L ab (Internal) : [address] t ? ? S ? Cl 105 mmol/L 98-107 Final [place] mmol/L [facility] L ab (Internal) : [address] t ? ? S ? Tco2 26.0 mmol/L 22.0-30.0 Final No rth mmol/L [facility] L ab (Internal) : [address] t ? ? S ? Tp 7.6 g/dL 6.3-8.2 Final [facility] g/dL [facility] L [facility] (Internal) : [address] t ? ? S ? Alb 4.1 g/dL 3.5-5.0 Final [facility] g/dL [facility] L [facility] (Internal) : [address] t ? ? S ? Tbil 0.3 mg/dL 0.2-1.3 Final [place] mg/dL [facility] L ab (Internal) : [address] t ? ? S ? Alp 96 U/L 50-136 Final [facility] U/L [facility] L [facility] (Internal) : [address] t ? ? S ? Alt 21 U/L 9-52 U/L Final [place] (Sgpt) [facility] Hospital L ab (Internal) : [address] t ? ? S ? Ast 26 U/L 14-36 U/L Final [place] (Sgot) [facility] Hospital L ab (Internal) : [address] t 03/26/2020 Carbamazep S High Carbamaz 13.4 ug/mL 4.0-12.0 Final [place] ine, Serum epine ug/mL Countr y or Plasma Hospita l Lab (Internal) : [address] t 06/19/2019 CMP, Serum S - g/r 101 mg/dL 74-106 Final [facility] or Plasma mg/dL [facility] L ab (Internal) : [address] t ? ? S - Bun 8 mg/dL 7-17 Final [place] mg/dL [facility] Hospital L ab (Internal) : [address] t ? ? S - Crea 0.70 mg/dL 0.52-1.04 Final Nor th mg/dL [facility] L ab (Internal) : [address] t ? ? S - Ca 8.9 mg/dL 8.4-10.2 Final [facility] mg/dL [facility] L ab (Internal) : [address] t ? ? S - Na 141 mmol/L 137-145 Final [facility] mmol/L [facility] Hospital L ab (Internal) : [address] t ? ? S - K 3.8 mmol/L 3.5-5.1 Final [facility] mmol/L [facility] L [facility] (Internal) : [address] t ? ? S - Cl 107 mmol/L 98-107 Final [facility] mmol/L [facility] L ab (Internal) : [address] t ? ? S - Tco2 25.0 mmol/L 22.0-30.0 Final No rth mmol/L [facility] L ab (Internal) : [address] t ? ? S - Tp 7.7 g/dL 6.3-8.2 Final [facility] g/dL [facility] L ab (Internal) : [address] t ? ? S - Alb 4.1 g/dL 3.5-5.0 Final [facility] g/dL [facility] L ab (Internal) : [address] t ? ? S - Tbil 0.4 mg/dL 0.2-1.3 Final [facility] mg/dL [facility] L ab (Internal) : [address] t ? ? S - Alp 100 U/L 50-136 Final [facility] U/L [facility] L [facility] (Internal) : [address] t ? ? S - Alt 24 U/L 9-52 U/L Final [facility] (Sgpt) [facility] L [facility] (Internal) : [address] ? ? S - Ast 25 U/L 14-36 U/L Final [facility] (Sgot) [facility] L [facility] (Internal) : [address] 06/19/2019 Lipid S High Chol 249 mg/dL 50-200 Final Nor th Panel, mg/dL [facility] L ab (Internal) : [address] ? ? S High Trig 171 mg/dL 10-150 Final [facility] mg/dL [facility] L ab (Internal) : [address] ? ? S - Hdl 40 mg/dL 40-60 Final [facility] mg/dL [facility] L ab (Internal) : [address] ? ? S High Ldl 175 mg/dL 0-130 Final [facility] mg/dL [facility] L ab (Internal) : [address] 06/19/2019 ALT S - Alt 24 U/L 9-52 U/L Final Nort h (Alanine (Sgpt) [facility] Lab ferase), (Interna l): Serum or [address] 06/19/2019 Carbamazep S - Carbamaz 10.3 ug/mL 4.0-12.0 Final [place] ine, Serum epine ug/mL Countr y or Plasma Hospita l Lab (Internal) : [address] 02/03/2019 Urinalysis UR - UA-color dark yellow pale F inal [place] , yellow [facility] Dipstick, Hospita l Lab Reflex (Internal) : Micro [address] ? ? UR ABNORMAL UA-appea cloudy clear Final [facility] L ab (Internal) : [address] ? ? UR - UA-gluc negative negative Final [facility] ab (Internal) : [address] ? ? UR - UA-bili negative negative Final [facility] ab (Internal) : [address] ? ? UR - UA-keton negative negative Final [facility] L ab (Internal) : [address] ? ? UR - UA-spec 1.010 1.003-1.0 Final [place] Grav 35 [facility] L ab (Internal) : [address] ? ? UR ABNORMAL UA-blood large negative Final [facility] ab (Internal) : [address] ? ? UR - UA-pH 6.0 [pH] 4.6-8.0 Final [place] [pH] [facility] ab (Internal) : [address] ? ? UR ABNORMAL UA-prot trace negative Final [facility] ab (Internal) : [address] ? ? UR - UA-urobi normal normal Final [facility] ab (Internal) : [address] ? ? UR - UA-nitri negative negative Final [facility] ab (Internal) : [address] ? ? UR ABNORMAL UA-leuk small negative Final [facility] L ab (Internal) : [address] 02/03/2019 Urinalysis UR ABNORMAL UA-WBC 3-5 [hpf] 0-3 [hpf] Final [facility]sc[facility] Hospit al Lab c (Internal) : [address] t ? ? UR ABNORMAL UA-RBC 10-25 [hpf] 0-2 [hpf] Final [facility] L ab (Internal) : [address] t ? ? UR ABNORMAL UA-bacte moderate none seen Final [place] jacki [hpf] [hpf] [facility] L ab (Internal) : [address] t ? ? UR ABNORMAL UA-epith moderate none seen Final [place] elial [hpf] [hpf] [facility] L ab (Internal) : [address] t ? ? UR ABNORMAL UA-mucus moderate none seen Final [place] [hpf] [hpf] [facility] L ab (Internal) : [address] 02/03/2019 Culture UR - Final microbiology ? Final [place] ([place] results [facility] Count), Hospital Lab Urine (Internal) : [address] 12/29/2018 CBC W/ BLD - Wbc 7.3 10*3/uL 5.0-10.0 Final [place] Auto Diff 10*3/uL [facility] [place] [place] L ab (Internal) : [address] t ? ? BLD - Rbc 4.57 10*6/uL 4.10-5.30 Final N orth 10*6/uL [facility] L ab (Internal) : [address] t ? ? BLD - Hgb 14.1 g/dL 12.0-16.0 Final Nort h g/dL [facility] L ab (Internal) : [address] t ? ? BLD - Hct 43.4 % 37.0-47.0 Final [place] % [facility] L ab (Internal) : [address] t ? ? BLD - Mcv 95.0 fL 80.0-96.0 Final [place] fL [facility] L ab (Internal) : [address] t ? ? BLD - Mch 30.9 pg 26.0-32.0 Final [place] pg [facility] L ab (Internal) : [address] t ? ? BLD - Mchc 32.5 g/dL 31.0-35.0 Final [facility] g/dL [facility] L ab (Internal) : [address] ? ? BLD - Rdw 13.1 % 11.5-14.5 Final [facility] Hospital L ab (Internal) : [address] ? ? BLD - Plt 315 10*3/uL 130-450 Final Nort h 10*3/uL [facility] Hospital L ab (Internal) : [address] ? ? BLD - Anc 5.02 10*3/uL ? Final Nort h [facility] Hospital L ab (Internal) : [address] ? ? BLD - Neutro 68.7 % 40.0-75.0 Final [facility] Hospital L ab (Internal) : [address] ? ? BLD Low Lymph 19.2 % 20.0-50.0 Final [facility] L ab (Internal) : [address] ? ? BLD High Lipscomb 10.3 % 2.0-10.0 Final [facility] L ab (Internal) : [address] ? ? BLD - Eos 1.4 % 1.0-6.0 % Final [facility] L ab (Internal) : [address] ? ? BLD - Baso 0.1 % 0.0-1.0 % Final [facility] Hospital L ab (Internal) : [address] ? ? BLD - Ig 0.3 % 0.0-0.9 % Final [facility] L ab (Internal) : [address] [place] t 12/29/2018 ALT S - Alt 27 U/L 9-52 U/L Final [facility] (Alanine (Sgpt) [facility] Lab ferase), (Interna l): Serum or [address] t 12/29/2018 Carbamazep S - Carbamaz 11.7 ug/mL 4.0-12.[address] [facility], Serum epine ug/mL Countr y or Plasma Hospita l Lab (Internal) : [address] [place] t 11/29/2017 Venipunctu BLD ? Venpn* ? ? Final N orth re [facility] Hospital L ab (Internal) : [address] 11/29/2017 Carbamazep S ? Carbamaz 11.9 ug/mL 4.0-12.0 Final [place] ine, Serum epine ug/mL Countr y or Plasma Hospita l Lab (Internal) : [address] 11/29/2017 ALT S ? Alt 32 U/L 9-52 U/L Final Nort h (Alanine (Sgpt) [facility] Lab ferase), (Interna l): Serum or [address] 11/29/2017 CBC W/ BLD ? Wbc 9.2 10*3/uL 5.0-10.0 Final [place] Auto Diff 10*3/uL [facility] Hospital L ab (Internal) : [address] ? ? BLD ? Rbc 4.56 10*6/uL 4.10-5.30 Final N orth 10*6/uL [facility] Hospital L ab (Internal) : [address] ? ? BLD ? Hgb 14.5 g/dL 12.0-16.0 Final Nort h g/dL [facility] Hospital L ab (Internal) : [address] ? ? BLD ? Hct 44.4 % 37.0-47.0 Final [facility] Hospital L ab (Internal) : [address] ? ? BLD High Mcv 97.4 fL 80.0-96.[address] [facility] Hospital L ab (Internal) : [address] ? ? BLD ? Mch 31.8 pg 26.0-32.0 Final [facility] Hospital L ab (Internal) : [address] ? ? BLD ? Mchc 32.7 g/dL 31.0-35.0 Final Nort h g/dL [facility] Hospital L ab (Internal) : [address] ? ? BLD ? Rdw 13.5 % 11.5-14.5 Final [facility] Hospital L ab (Internal) : [address] ? ? BLD ? Plt 392 10*3/uL 130-450 Final Nort h 10*3/uL [facility] Hospital L ab (Internal) : [address] ? ? BLD ? Anc 6.07 10*3/uL ? Final Nort h [facility] L ab (Internal) : [address] t ? ? BLD ? Neutro 66.2 % 40.0-75.0 Final [facility] L ab (Internal) : [address] t ? ? BLD ? Lymph 21.5 % 20.0-50.0 Final [facility] L ab (Internal) : [address] t ? ? BLD High Lipscomb 10.4 % 2.0-10.0 Final [facility] ab (Internal) : [address] t ? ? BLD ? Eos 1.4 % 1.0-6.0 % Final [facility] ab (Internal) : [address] t ? ? BLD ? Baso 0.2 % 0.0-1.0 % Final [facility] ab (Internal) : [address] t ? ? BLD ? Ig 0.3 % 0.0-0.9 % Final [facility] ab (Internal) : [address] t 08/26/2017 Pathology TISS ? Report results below ? Fi nal [facility] L ab (Internal) : [address] t 07/15/2017 CRP, High S High Rcrp 8.27 mg/dL 0.10-0.30 Fin al [place] Sensitivit mg/dL Countr y y, Serum Hospital Lab or Plasma (Air Cargo Agent al): [address] t 07/15/2017 Partial BLD ? APTT 24 s 22-35 s Final Nort h Thrombopla (Op) Countr y stin Time Hospita l Lab (Internal) : [address] t 07/15/2017 Prothrombi BLD ? Pt 9.9 S 9.1-11.7 Final [place] n Time [facility] L ab (Internal) : [address] t ? ? BLD ? Inr 1.0 ? Final [facility] L ab (Internal) : [address] t 07/15/2017 BNP S ? Nt-probn 87 pg/mL 0-125 Final N orth (B-type p pg/mL [facility] Lab c (Internal) : Peptide), [address] Prohormone , [place]iss [place] N-terminal , Quant, Immunoassa y, Blood 07/15/2017 Troponin S ? Trop <0.06 NG/mL 0.00-0.06 Fin al [place] I, Serum NG/mL [facility] or Plasma Hospita l Lab (Internal) : [address] t 07/15/2017 CMP, Serum S ? g/r 100 mg/dL 74-106 Final [facility] or Plasma mg/dL [facility] L ab (Internal) : [address] t ? ? S Low Bun 5 mg/dL 7-17 Final [facility] mg/dL [facility] L ab (Internal) : [address] ? ? S ? Crea 0.60 mg/dL 0.52-1.04 Final [facility] mg/dL [facility] L ab (Internal) : [address] t ? ? S ? Ca 8.9 mg/dL 8.4-10.2 Final [facility] mg/dL [facility] L ab (Internal) : [address] ? ? S ? Na 140 mmol/L 137-145 Final [facility] mmol/L [facility] L ab (Internal) : [address] ? ? S ? K 3.9 mmol/L 3.5-5.1 Final [facility] mmol/L [facility] L ab (Internal) : [address] ? ? S ? Cl 104 mmol/L 98-107 Final [facility] mmol/L [facility] L ab (Internal) : [address] t ? ? S ? Tco2 24.0 mmol/L 22.0-30.0 Final No rth mmol/L [facility] L ab (Internal) : [address] t ? ? S ? Tp 7.5 g/dL 6.3-8.2 Final [facility] g/dL [facility] L ab (Internal) : [address] t ? ? S ? Alb 4.3 g/dL 3.5-5.0 Final [facility] g/dL [facility] L ab (Internal) : [address] t ? ? S ? Tbil 0.5 mg/dL 0.2-1.3 Final [place] mg/dL [facility] Hospital L ab (Internal) : [address] ? ? S ? Alp 86 U/L 50-136 Final [place] U/L [facility] Hospital L ab (Internal) : [address] ? ? S ? Alt 24 U/L 9-52 U/L Final [place] (Sgpt) [facility] Hospital L ab (Internal) : [address] ? ? S ? Ast 25 U/L 14-36 U/L Final [place] (Sgot) [facility] Hospital L ab (Internal) : [address] 07/15/2017 CBC W/ BLD High Wbc 11.6 10*3/uL 5.0-10.0 Final [place] Auto Diff 10*3/uL [facility] Hospital L ab (Internal) : [address] ? ? BLD ? Rbc 4.37 10*6/uL 4.10-5.30 Final N orth 10*6/uL [facility] Hospital L ab (Internal) : [address] ? ? BLD ? Hgb 13.8 g/dL 12.0-16.0 Final Nort h g/dL [facility] Hospital L ab (Internal) : [address] ? ? BLD ? Hct 41.8 % 37.0-47.0 Final [facility] Hospital L ab (Internal) : [address] ? ? BLD ? Mcv 95.7 fL 80.0-96.[address] [facility] Hospital L ab (Internal) : [address] ? ? BLD ? Mch 31.6 pg 26.0-32.0 Final [place] pg [facility] Hospital L ab (Internal) : [address] ? ? BLD ? Mchc 33.0 g/dL 31.0-35.0 Final Nort h g/dL [facility] Hospital L ab (Internal) : [address] ? ? BLD ? Rdw 13.4 % 11.5-14.5 Final [facility] Hospital L ab (Internal) : [address] ? ? BLD ? Plt 363 10*3/uL 130-450 Final Nort [facility] 10*3/uL [facility] Hospital L ab (Internal) : [address], [place] t ? ? BLD ? Anc 8.57 10*3/uL ? Final Nort h [facility] L ab (Internal) : [address] ? ? BLD ? Neutro 73.9 % 40.0-75.0 Final [facility] L ab (Internal) : [address] ? ? BLD Low Lymph 13.5 % 20.0-50.0 Final [facility] L ab (Internal) : [address] t ? ? BLD High Lipscomb 10.5 % 2.0-10.0 Final [facility] L ab (Internal) : [address] t ? ? BLD ? Eos 1.5 % 1.0-6.0 % Final [facility] L ab (Internal) : [address] ? ? BLD ? Baso 0.3 % 0.0-1.0 % Final [facility] L ab (Internal) : [address] ? ? BLD ? Ig 0.3 % 0.0-0.9 % Final [facility] L ab (Internal) : [address] 2017 Venipunctu BLD ? Venpn* ? ? Final N orth re [facility] L ab (Internal) : [address] 2017 Carbamazep S ? Carbamaz 10.5 ug/mL 4.0-12.0 Final [place] ine, Serum epine ug/mL Countr y or Plasma Hospita l Lab (Internal) : [address] 2017 CBC W/ BLD ? Wbc 6.4 10*3/uL 5.0-10.0 Final [place] Auto Diff 10*3/uL [facility] L ab (Internal) : [address] t ? ? BLD ? Rbc 4.66 10*6/uL 4.10-5.30 Final N orth 10*6/uL [facility] L ab (Internal) : [address] t ? ? BLD ? Hgb 14.8 g/dL 12.0-16.0 Final Nort h g/dL [facility] Hospital L ab (Internal) : [address] [place] [address] ? ? BLD ? Hct 44.9 % 37.0-47.0 Final [facility] Hospital L ab (Internal) : [address] [place] ? ? BLD High Mcv 96.4 fL 80.0-96.[address] [facility] Hospital L ab (Internal) : [address] ? ? BLD ? Mch 31.8 pg 26.0-32.0 Final [facility] Hospital L ab (Internal) : [address] [place] ? ? BLD ? Mchc 33.0 g/dL 31.0-35.0 Final Nort h g/dL [facility] Hospital L ab (Internal) : [address] [place] ? ? BLD ? Rdw 13.5 % 11.5-14.5 Final [facility] Hospital L ab (Internal) : [address] ? ? BLD ? Plt 349 10*3/uL 130-450 Final Nort [facility] 10*3/uL [facility] Hospital L ab (Internal) : [address] [place] ? ? BLD ? Anc 4.80 10*3/uL ? Final Nort [facility] Hospital L ab (Internal) : [address] [place] ? ? BLD High Neutro 75.6 % 40.0-75.0 Final [facility] Hospital L ab (Internal) : [address] [place] ? ? BLD Low Lymph 16.2 % 20.0-50.0 Final [facility] Hospital L ab (Internal) : [address] [place] ? ? BLD ? Lipscomb 6.3 % 2.0-10.0 Final [facility] Hospital L ab (Internal) : 189 [address] [place] ? ? BLD ? Eos 1.4 % 1.0-6.0 % Final [facility] (Internal) : [address] [place] ? ? BLD ? Baso 0.2 % 0.0-1.0 % Final [facility] (Internal) : [address] ? ? BLD ? Ig 0.3 % 0.0-0.9 % Final [facility] (Internal) : [address] 2017 ALT S ? Alt 31 U/L 9-52 U/L Final [facility] ([facility]), (Interna l): Serum or 189 Prou ty Plasma Yadira Mireles 12/28/2016 Venipunctu BLD ? Venpn* ? ? [facility] : [address] 12/28/2016 HbA1C BLD ? Ha1C 5.7 % 4.0-6.0 % Final [facility] (Hemoglobi Countr y n a1C), Hospital Lab Blood (Internal) : [address] Past Encounters 01/10/2021 Painless Rectal Bleeding Stephanie Ayala MD: [address] [facility] [place] [address], Ph. 12/26/2020 Stephanie Ayala MD: [address] [place] [address], Ph. 12/10/2020 Stephanie Ayala MD: [address] [employer] [facility] [place] [address], Ph. 11/21/2020 Painless Rectal Bleeding; Screening Tyler noscopy Jacqueline Marie, BOX STAMPER: [address] [place] [address], Ph. 06/20/2020 Adult Health Examination; Epilepsy; Pain less Rectal Bleeding; Hyperlipidemia; Intellectual Functioning Disability; Administration of Influenza Vaccine Jacqueline Marie BOX STAMPER: [address] [place] [address], Ph. 03/28/2020 Epilepsy; Abdominal Pain; Excessive Eati ng - Polyphagia; Nasal Congestion; Painless Rectal Bleeding Jacqueline Marie NP: [address] [place] [address], Ph. 12/15/2019 Hyperlipidemia; Intellectual Functioning Disability; Epilepsy; Surveillance of Depot Contraception Done; Acanthosis Nigricans; Right Sided Abdominal Pain Jacqueline Marie, BOX STAMPER: [address] [place] [address], Ph. 12/15/2019 Epilepsy Felton Joya MD: [address] [place] [address], Ph. Social History Tobacco Smoking Status Never Smoker Vaccine List Vaccine Type COVID-19, mRNA, LNP-S, PF, 100 mcg/0.5 m L dose 12/03/2020?100 mcg Hep B, adult 01/13/2001 02/17/2001 08/23/2001 Td (adult) preservative free 06/29/2016?0.5 mL Td (adult), adsorbed 06/13/1998 Tdap 05/20/2006 Plan of Care Reminders Provider Appointments None ? ? recorded. Lab None ? ? recorded. Referral None ? ? recorded. Procedures None ? ? recorded. Surgeries None ? ? recorded. Imaging None ? ? recorded. Vitals 01/10/2021 04:30PM Office 30 Height 150.37 cm 12/26/2020 11:15AM Acute 15 Height 150.37 cm 12/10/2020 01:15PM Lunch 15 Height Blood Pressure 150.37 cm 132/88 mm[Hg] 11/21/2020 02:00PM Acute 40 Height Weight BMI Blood Pressure 150.37 cm 68.75 kg 30.4 kg/m2 118/80 mm[Hg] 06/20/2020 09:00AM CPE 40 Height Weight BMI Blood Pressure 150.37 cm 70.76 kg 31.3 kg/m2 130/80 mm[Hg] 03/28/2020 01:00PM Acute 20 Height Blood Pressure 150.37 cm 138/76 mm[Hg] 12/15/2019 09:00AM Follow Up 20 Height 150.37 cm 07/06/2019 08:20AM Follow Up 20 Height Weight BMI Blood Pressure 150.37 cm 71.4 kg 31.6 kg/m2 122/78 mm[Hg] 06/19/2019 08:00AM Follow Up 20 Height Weight BMI Blood Pressure 152.4 cm 72.03 kg 31 kg/m2 110/68 mm[Hg] 02/03/2019 10:40AM Same Day 20 Height Weight BMI Blood Pressure 152.4 cm 70.99 kg 30.6 kg/m2 118/88 mm[Hg] 01/04/2019 08:40AM Follow Up 20 Height Weight BMI Blood Pressure 152.4 cm 70.76 kg 30.5 kg/m2 112/72 mm[Hg] 11/29/2018 02:40PM CPE 40 Height Weight BMI Blood Pressure 152.4 cm 69.85 kg 30.1 kg/m2 (1) 136/76 mm[H g] (2) 110/70 mm[Hg ] 07/13/2018 10:20AM Follow Up 20 Height Weight BMI Blood Pressure 152.4 cm 70.31 kg 30.3 kg/m2 128/88 mm[Hg] 03/24/2018 04:00PM Follow Up 20 Height Weight BMI Blood Pressure 152.4 cm 71.89 kg 31 kg/m2 135/91 mm[Hg] 12/14/2017 Height Weight 152.4 cm 71.49 kg 09/20/2017 Weight Blood Pressure 70.4 kg 122/66 mm[Hg] 07/22/2017 Weight Blood Pressure 71.67 kg 136/82 mm[Hg] 2017 Height Weight 152.4 cm 71.67 kg 12/28/2016 Weight Blood Pressure 71.71 kg 120/60 mm[Hg] 10/09/2016 Height Weight 157.48 cm 68.95 kg 09/18/2016 Weight Blood Pressure 70.94 kg 114/66 mm[Hg] 06/29/2016 Height Weight Blood Pressure 157.48 cm 71.8 kg 116/66 mm[Hg] 06/04/2016 Height Weight Blood Pressure 157.48 cm 69.4 kg 120/70 mm[Hg] 01/24/2016 Weight Blood Pressure 71.21 kg 108/76 mm[Hg] 01/15/2016 Height Weight Blood Pressure 157.48 cm 71.21 kg 128/68 mm[Hg] 01/06/2016 Weight Blood Pressure 73.8 kg 126/68 mm[Hg] 09/27/2015 Blood Pressure 138/92 mm[Hg] 09/18/2015 Height Weight 157.48 cm 75.3 kg 06/27/2015 Weight Blood Pressure 73.21 kg 114/68 mm[Hg] 04/11/2015 Height Weight Blood Pressure 157.48 cm 69.4 kg 122/70 mm[Hg] 02/22/2015 Weight Blood Pressure 68.63 kg 118/74 mm[Hg] 11/01/2014 Height Weight Blood Pressure 157.48 cm 65.32 kg 128/72 mm[Hg] 10/25/2014 Height Weight Blood Pressure 151.13 cm 65.91 kg 106/66 mm[Hg] 08/28/2014 Weight Blood Pressure 65.45 kg 122/68 mm[Hg] 06/25/2014 Height Weight Blood Pressure 157.48 cm 65.27 kg 108/64 mm[Hg] 04/04/2014 Height Weight Blood Pressure 157.48 cm 63.05 kg 110/72 mm[Hg] 03/22/2014 Weight Blood Pressure 64.82 kg 116/78 mm[Hg] 10/18/2013 Height Weight Blood Pressure 157.48 cm 64.86 kg 126/78 mm[Hg] 06/24/2013 Height Weight Blood Pressure 153.04 cm 64.14 kg 112/80 mm[Hg] 02/23/2013 Height Weight Blood Pressure 157.48 cm 62.14 kg 109/87 mm[Hg] 12/03/2012 Weight Blood Pressure 64.18 kg 110/78 mm[Hg] 08/31/2012 Weight Blood Pressure 64.59 kg 106/66 mm[Hg] 08/24/2012 Height Weight Blood Pressure 157.48 cm 64.41 kg 115/65 mm[Hg] 06/04/2012 Height Weight Blood Pressure 149.23 cm 63.96 kg 110/76 mm[Hg] 03/10/2012 Height Weight Blood Pressure 149.23 cm 64.41 kg 124/79 mm[Hg] 02/19/2012 Weight Blood Pressure 63.91 kg 118/72 mm[Hg] 09/10/2011 Height Weight 149.23 cm 65.32 kg 07/03/2011 Weight Blood Pressure 66.45 kg 118/76 mm[Hg] 03/11/2011 Height Weight 149.23 cm 64.41 kg 11/19/2010 Blood Pressure 118/70 mm[Hg] 11/12/2010 Weight Blood Pressure 66.18 kg 126/70 mm[Hg] 08/16/2010 Weight Blood Pressure 64.47 kg 118/72 mm[Hg] 05/08/2010 Height Weight Blood Pressure 149.23 cm 65.77 kg 118/70 mm[Hg] 04/10/2010 Weight Blood Pressure 65.2 kg 110/62 mm[Hg] 07/10/2009 Weight Blood Pressure 69.85 kg 110/70 mm[Hg] 04/06/2009 Weight Blood Pressure 69.4 kg 118/80 mm[Hg] 12/07/2008 Weight Blood Pressure 70.76 kg 118/80 mm[Hg] 11/28/2008 Weight Blood Pressure 71.21 kg 118/78 mm[Hg] 10/03/2008 Weight Blood Pressure 70.31 kg 120/80 mm[Hg] 04/02/2008 Weight Blood Pressure 71.21 kg 120/70 mm[Hg] 01/05/2008 Weight Blood Pressure 68.04 kg 106/74 mm[Hg] 09/30/2007 Weight Blood Pressure 69.4 kg 126/66 mm[Hg] 03/25/2007 Weight Blood Pressure 65.77 kg 120/90 mm[Hg] 08/26/2006 Weight Blood Pressure 63.05 kg 110/70 mm[Hg] 05/20/2006 Height Weight Blood Pressure 153.67 cm 64.86 kg 118/78 mm[Hg] 01/20/2006 Weight Blood Pressure 68.04 kg 114/76 mm[Hg] 12/09/2005 Weight Blood Pressure 68.04 kg 118/80 mm[Hg] 11/27/2005 Weight Blood Pressure 65.77 kg 108/64 mm[Hg] 09/08/2005 Weight Blood Pressure 67.64 kg 110/80 mm[Hg] 08/04/2005 Weight Blood Pressure 66.79 kg 104/68 mm[Hg] 05/21/2005 Weight Blood Pressure 66.28 kg 110/78 mm[Hg] 02/24/2005 Weight Blood Pressure 67.13 kg 116/76 mm[Hg] 07/23/2004 Weight Blood Pressure 67.3 kg 106/60 mm[Hg]
--- OUTSIDE RECORDS SUMMARY | 2021-03-13 14:09 | XMS_ITS | Encounter Summary ---
:1975 Author Care Team Providers Name Role Phone Jacqueline Marie NP Primary Care Provider [phone] Milton Camarillo General Surgeon [phone] Reason for Visit Phone Call Visit; mass rectal Assessment and Plan Assessment Note 45-year-old woman with a low rectal cancer. Complete staging is needed to guide therapeutic treatment management and strategy. I went over all of these details careful ly with the family and the caregiver and answered all their questions. Next step: CT scan of the chest, abdomen and pelvis with IV and p.o. contrast. Rectal/pelvic MRI. Based off of the mismatch proteins havin g retained expression and combined with no significant family history(the grandfather being a second-degree relative without a Grace?specific cancer), this is unlikely to be a genetic or heredita ry cancer syndrome. Based off the information I currently have, further genetic work-up is not warranted. I will make sure to recommend to the [facility] trino that any first?degree relatives begin their screening starting at the age of 34. 30 minutes was spent on this follow-up c troy work-up and discussion. Discussion Note: None recorded.Patient educational handouts: No information available. Plan of Care Reminders Provider Appointments Cpe 40 06/24/2021 Jacqueline clarke NP 9:00AM Lab None ? ? recorded. Referral [...] Code Code System Name Reaction Severity Onset 054609 RxNorm Lamictal ? ? ? 8134 RxNorm Phenobarbital ? ? ? 385605 RxNorm Trileptal ? ? ? Notes: 11/21/20 [...] gastritis, polyps, hiatal hernia. 12/26/2020 MRI, Pelvis, W/wo Contrast [facility] [address] [place] [address] (Work Place) Notes: None Vaccine List Vaccine [...] Notes) Information) Functional Status Unknown. Past Encounters 12/26/2020 Milton Camarillo MD: [address] [facility] [employer] [facility] [employer] [address], Ph. 12/10/2020 Milton Camarillo MD: [address] [facility] [address], Ph. History of Present Illness Note: <p>The patient is home. The provider is {{home in the office*}}.

The patient's caregiver and family have been positively identified and has consented to a telephone visit.I am told that both the parents as well as the caregiver are on the other and listening in group conversation. Verbally, this is confirmed over the phone.</p><p>
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 Mismatch repair protein suppr essions are intact.</p><p>
</p><p>No significant family history with the exception of maternal grandfather with a melanoma and prostate cancer history.
</p&g t;<p>
</p><p>Next step is staging and I went over this in detail with the family.</p><p>
</p><p>Next steps depend the results of the staging.& lt;/p><p>
</p><p>
</p>Review of Systems: ROS as noted in the HPI Review of Systems None recorded. Physical Exam ? Notes: <p>Phone visit
</p>
[2021-03-13 14:10] LABS: Abs Immature Grans 0.02 10^3/uL (0.0-0.06); Absolute Basophil Count 0.02 10^3/uL (0.0-0.2); Absolute Eosinophil Count 0.74 10^3/uL (0.0-0.7); Absolute Lymphocyte Count 0.49 10^3/uL (1.2-3.4); Absolute Monocyte Count 0.56 10^3/uL (0.1-0.8); Absolute Neutrophil Count 5.01 10^3/uL (1.2-6.7); Basophils % 0.3; Eosinophils % 10.8; HCT 37.1 % (36.0-46.0); HGB 12.1 g/dL (11.2-15.7); Immature Grans % 0.3; Lymphocytes % 7.2; MCH 31.5 pg (27.0-33.0); MCHC 32.6 % (32.0-36.0); MCV 96.6 fL (80-95); MPV 9.1 fL (8.0-11.0); Monocytes % 8.2; Neutrophils % 73.2; Nucleated RBC 0 %; Platelet Count 207 10^3/uL (130-400); RBC 3.84 10^6/uL (3.93-5.22); RDW 16.4 % (11.7-14.6); WBC 6.84 10^3/uL (4.4-10.8)
[2021-03-13 14:22] LABS: ALT 20 U/L (14-59); AST 17 U/L (15-37); Albumin 3.3 g/dL (3.4-5.0); Alkaline Phosphatase 120 U/L (46-116); Anion Gap 9.8 mmol/L (3-11); BUN 12 mg/dL (7-18); Bilirubin, Total 0.2 mg/dL (0.2-1.0); CO2 25.2 mmol/L (21.0-32.0); CREATININE 0.7 mg/dL (0.55-1.02); Calcium 8.4 mg/dL (8.5-10.1); Chloride 105 mmol/L (98-107); Glucose 125 mg/dL (74-106); Potassium 3.2 mmol/L (3.5-5.1); Sodium 140 mmol/L (136-145); Total Protein 7.3 g/dL (6.4-8.2)
== END 2021-03-13 23:55 ==
LOC: LBO 14:07
PROVIDERS: Visit Provider Internal Medicine Hematology & Oncology
DX: C20 Malignant neoplasm of rectum (principal)
CPT/HCPCS: 36415; 80053; 80076; 85025

== ENCOUNTER 2021-03-20 02:55 | Outpatient (CLI) | payer MEDICAID, SELFPAY ==
[2021-03-20 14:05] LABS: Abs Immature Grans 0.03 10^3/uL (0.0-0.06); Absolute Basophil Count 0.02 10^3/uL (0.0-0.2); Absolute Eosinophil Count 0.37 10^3/uL (0.0-0.7); Absolute Lymphocyte Count 0.56 10^3/uL (1.2-3.4); Absolute Monocyte Count 0.67 10^3/uL (0.1-0.8); Absolute Neutrophil Count 4.77 10^3/uL (1.2-6.7); Basophils % 0.3; Eosinophils % 5.8; HGB 12.7 g/dL (11.2-15.7); Immature Grans % 0.5; Lymphocytes % 8.7; MCH 31.4 pg (27.0-33.0); MCHC 32.6 % (32.0-36.0); MCV 96.5 fL (80-95); MPV 9.3 fL (8.0-11.0); Monocytes % 10.4; Neutrophils % 74.3; Nucleated RBC 0 %; Platelet Count 226 10^3/uL (130-400); RBC 4.04 10^6/uL (3.93-5.22); RDW 17.8 % (11.7-14.6); RDW-SD 61.2 fL; WBC 6.42 10^3/uL (4.4-10.8)
[2021-03-20 14:18] LABS: ALT 27 U/L (14-59); AST 19 U/L (15-37); Albumin 3.5 g/dL (3.4-5.0); Alkaline Phosphatase 126 U/L (46-116); Anion Gap 9.6 mmol/L (3-11); BUN 16 mg/dL (7-18); Bilirubin, Total 0.3 mg/dL (0.2-1.0); CO2 25.4 mmol/L (21.0-32.0); CREATININE 0.7 mg/dL (0.55-1.02); Calcium 8.9 mg/dL (8.5-10.1); Chloride 106 mmol/L (98-107); Glucose 93 mg/dL (74-106); Potassium 3.8 mmol/L (3.5-5.1); Sodium 141 mmol/L (136-145); Total Protein 7.6 g/dL (6.4-8.2)
== END 2021-03-20 02:56 | disposition home or self-care (01) ==
LOC: LBO 02:56
PROVIDERS: Visit Provider Internal Medicine Hematology & Oncology
DX: C20 Malignant neoplasm of rectum (principal)
CPT/HCPCS: 36415; 80053; 80076; 85025

== ENCOUNTER 2021-03-27 03:35 | Outpatient (CLI) | payer MEDICAID, SELFPAY ==
[2021-03-27 14:30] LABS: Abs Immature Grans 0.06 10^3/uL (0.0-0.06); Absolute Basophil Count 0.02 10^3/uL (0.0-0.2); Absolute Eosinophil Count 0.23 10^3/uL (0.0-0.7); Absolute Lymphocyte Count 0.46 10^3/uL (1.2-3.4); Absolute Monocyte Count 1.04 10^3/uL (0.1-0.8); Absolute Neutrophil Count 7.37 10^3/uL (1.2-6.7); Basophils % 0.2; Eosinophils % 2.5; HCT 40.8 % (36.0-46.0); HGB 13.4 g/dL (11.2-15.7); Immature Grans % 0.7; MCH 32.4 pg (27.0-33.0); MCHC 32.8 % (32.0-36.0); MCV 98.6 fL (80-95); Monocytes % 11.3; Neutrophils % 80.3; Nucleated RBC 0 %; Platelet Count 288 10^3/uL (130-400); RBC 4.14 10^6/uL (3.93-5.22); RDW 18.7 % (11.7-14.6); RDW-SD 65.9 fL; WBC 9.18 10^3/uL (4.4-10.8)
[2021-03-27 14:44] LABS: ALT 24 U/L (14-59); AST 19 U/L (15-37); Albumin 3.7 g/dL (3.4-5.0); Alkaline Phosphatase 141 U/L (46-116); Anion Gap 13.1 mmol/L (3-11); BUN 12 mg/dL (7-18); Bilirubin, Total 0.2 mg/dL (0.2-1.0); CO2 22.9 mmol/L (21.0-32.0); CREATININE 0.9 mg/dL (0.55-1.02); Calcium 8.9 mg/dL (8.5-10.1); Chloride 106 mmol/L (98-107); Glucose 131 mg/dL (74-106); Potassium 3.2 mmol/L (3.5-5.1); Sodium 142 mmol/L (136-145)
== END 2021-03-27 03:36 | disposition home or self-care (01) ==
LOC: LBO 03:35
PROVIDERS: Visit Provider Internal Medicine Hematology & Oncology
DX: C20 Malignant neoplasm of rectum (principal)
CPT/HCPCS: 36415; 80053; 85025

== ENCOUNTER 2021-03-31 03:35 | Outpatient (CLI) | payer MEDICAID, SELFPAY ==
[2021-03-31 11:07] LABS: Abs Immature Grans 0.02 10^3/uL (0.0-0.06); Absolute Basophil Count 0.02 10^3/uL (0.0-0.2); Absolute Lymphocyte Count 0.48 10^3/uL (1.2-3.4); Absolute Monocyte Count 0.66 10^3/uL (0.1-0.8); Basophils % 0.3; Eosinophils % 6.4; HCT 37.7 % (36.0-46.0); HGB 12.5 g/dL (11.2-15.7); Immature Grans % 0.3; Lymphocytes % 7.6; MCH 32.9 pg (27.0-33.0); MCHC 33.2 % (32.0-36.0); MCV 99.2 fL (80-95); MPV 9.2 fL (8.0-11.0); Monocytes % 10.5; Neutrophils % 74.9; Nucleated RBC 0 %; Platelet Count 210 10^3/uL (130-400); RDW 19.4 % (11.7-14.6); RDW-SD 68.9 fL; WBC 6.28 10^3/uL (4.4-10.8)
[2021-03-31 11:19] LABS: ALT 21 U/L (14-59); AST 20 U/L (15-37); Albumin 3.4 g/dL (3.4-5.0); Alkaline Phosphatase 147 U/L (46-116); Anion Gap 7.3 mmol/L (3-11); BUN 6 mg/dL (7-18); Bilirubin, Total 0.3 mg/dL (0.2-1.0); CO2 29.7 mmol/L (21.0-32.0); CREATININE 0.7 mg/dL (0.55-1.02); Calcium 8.5 mg/dL (8.5-10.1); Chloride 106 mmol/L (98-107); Glucose 102 mg/dL (74-106); Potassium 3.3 mmol/L (3.5-5.1); Sodium 143 mmol/L (136-145); Total Protein 7.2 g/dL (6.4-8.2)
== END 2021-03-31 03:36 | disposition home or self-care (01) ==
LOC: LBO 03:35
PROVIDERS: Visit Provider Internal Medicine Hematology & Oncology
DX: C20 Malignant neoplasm of rectum (principal)
CPT/HCPCS: 36415; 80053; 85025

== ENCOUNTER 2023-03-19 12:46 | Outpatient (CLI) | payer MEDICAID, SELFPAY ==
[2023-03-19 09:14] LABS: Abs Immature Grans 0.04 10^3/uL (0.0-0.06); Absolute Basophil Count 0.02 10^3/uL (0.0-0.2); Absolute Lymphocyte Count 0.44 10^3/uL (1.2-3.4); Absolute Monocyte Count 0.64 10^3/uL (0.1-0.8); Absolute Neutrophil Count 7.14 10^3/uL (1.2-6.7); Basophils % 0.2; Eosinophils % 1.2; HCT 41.3 % (36.0-46.0); HGB 13.5 g/dL (11.2-15.7); Immature Grans % 0.5; Lymphocytes % 5.3; MCH 29.5 pg (27.0-33.0); MCHC 32.7 % (32.0-36.0); MCV 90 fL (80-95); MPV 9.2 fL (8.0-11.0); Monocytes % 7.6; Neutrophils % 85.2; Platelet Count 268 10^3/uL (130-400); RBC 4.58 10^6/uL (3.93-5.22); RDW 14.8 % (11.7-14.6); RDW-SD 48.7 fL; WBC 8.38 10^3/uL (4.4-10.8)
[2023-03-19 09:28] LABS: ALT 36 U/L (14-59); AST 15 U/L (15-37); Albumin 3.4 g/dL (3.4-5.0); Alkaline Phosphatase 101 U/L (46-116); Anion Gap 11.6 mmol/L (3-11); BUN 20 mg/dL (7-18); Bilirubin, Total 0.2 mg/dL (0.2-1.0); CO2 22.4 mmol/L (21.0-32.0); CREATININE 0.9 mg/dL (0.55-1.02); Calcium 8.9 mg/dL (8.5-10.1); Chloride 108 mmol/L (98-107); Estimated GFR 79.85 (mL/min/1.73m2); Glucose 120 mg/dL (74-106); Potassium 3.7 mmol/L (3.5-5.1); Sodium 142 mmol/L (136-145); Total Protein 7.5 g/dL (6.4-8.2)
[2023-03-19 21:03] LABS: CEA 2.6 ng/mL (See Note)
== END 2023-03-19 12:47 | disposition home or self-care (01) ==
LOC: LBO 12:46
PROVIDERS: Visit Provider Nurse Practitioner Family
DX: C20 Malignant neoplasm of rectum (principal)
CPT/HCPCS: 36415; 80053; 82378; 85025